=== PATIENT | male | born 1970 | race Caucasian/White ===

== ENCOUNTER 2017-05-17 00:06 | Emergency (ER) | payer OTHER ==
[~2017-05-17] VITALS: Ht 182.9 cm; Wt 68.0 kg
--- NOTE | 2017-05-17 00:06 | NUR ---
Patient BIBA [facility], triaged by RN. Waiting for an available bed.
[2017-05-17 00:10] VITALS: BP 159/86
--- NOTE | 2017-05-17 00:26 | NUR ---
Patient transferred to bed 8 for further care. RN evaluating patient at bedside.
[2017-05-17 00:30] LABS: BASOPHILS # (AUTO) 0.2 K/uL (0.00-0.22); BASOPHILS % (AUTO) 2.6 % (0.0-2.0); EOSINOPHILS # (AUTO) 0.1 K/uL (0-0.4); EOSINOPHILS % (AUTO) 1.4 % (0.0-4.0); HEMATOCRIT 33.2 % (36-52); HEMOGLOBIN 10.9 g/dL (12.0-18.0); LYMPHOCYTES % (AUTO) 12.7 % (20.5-51.1); MEAN CORPUSCULAR HEMOGLOBIN 28 pg (27-31); MEAN CORPUSCULAR HGB CONC 33 g/dL (33-37); MEAN CORPUSCULAR VOLUME 86 fL (80-94); MONOCYTES # (AUTO) 0.3 K/uL (0.8-1.0); MONOCYTES % (AUTO) 3.8 % (1.7-9.3); NEUTROPHILS % (AUTO) 79.5 % (42.2-75.2); PLATELET COUNT (AUTO) 238 K/uL (140-450); RED BLOOD CELL COUNT(AUTO) 3.88 MIL/uL (4.20-6.10); RED CELL DISTRIBUTION WIDTH 12.1 % (11.6-13.7); WHITE BLOOD COUNT (AUTO) 7.6 K/uL (4.8-10.8)
--- NOTE | 2017-05-17 00:30 | NUR ---
46Y/M PT. BIBA TO ED WITH C/O SYNCOPE. PER EMS;PT. VERBAL ARGUMENT WITH HIS THEN HAD SYNCOPE EPISODE AND URINE ON HIMSELF. BS 322 ON SCENE, MED HX: HTN, DM. PT DENIES N/V/D; SKIN IS PINK/WARM/DRY; AAOX4 WITH EVEN AND STEADY GAIT; LUNGS CLEAR BL; HR EVEN AND REGULAR; PT DENIES ANY FEVER, CP, SOB, OR COUGH AT THIS TIME; PATIENT STATES PAIN OF 0/10 AT THIS TIME; VSS; PATIENT POSITIONED FOR COMFORT; HOB ELEVATED; BEDRAILS UP X2; BED DOWN. ER MD MADE AWARE OF PT STATUS.
[2017-05-17 00:41] LABS: CARBON DIOXIDE 26.9 mmol/L (21-32); CREATININE 1.8 mg/dL (0.7-1.3); POTASSIUM 3.9 mmol/L (3.5-5.1)
[2017-05-17 00:47] LABS: ALBUMIN 2.6 g/dL (3.4-5.0); TOTAL BILIRUBIN 0.4 mg/dL (0.0-1.0)
--- NOTE | 2017-05-17 00:52 | NUR ---
Patient taken to CT scan via gurney by [employer].
--- NOTE | 2017-05-17 01:05 | NUR ---
Patient returned from CT scan. RN re-evaluating patient at bedside.
--- NOTE | 2017-05-17 01:15 | NUR ---
Pupils equal and reactive to light bilaterally. No facial droop noted. No smile deficit noted. Speech normal for patient. Patient is alert and oriented to person, place, time and event. Bilateral hand smog technician equal. Bilateral foot push equal.
[2017-05-17 01:19] LABS: BARBITURATE, URINE NEG. ng/ml (NEG <=200); BENZODIAZEPINE, URINE NEG. ng/mL (NEG <=200); CANNABINOID, URINE NEG. ng/mL (NEG <=50); COCAINE, URINE NEG. ng/mL (NEG <=300); OPIATE, URINE NEG. ng/mL (NEG <=2000); PHENCYCLIDINE SCREEN,URINE NEG. ng/mL (NEG <=25)
--- NOTE | 2017-05-17 01:20 | NUR ---
FAMILY AT BEDSIDE. PT AAOX4 AT THIS TIME
--- NOTE | 2017-05-17 01:40 | NUR ---
Patient discharged with v/s stable. Written and verbal after care instructions given and explained. Patient verbalized understanding. Ambulatory with steady gait. All questions addressed prior to discharge. Advised to follow up with PMD.
[2017-05-17 01:56] VITALS: BP 142/77
== END 2017-05-17 01:40 | disposition home or self-care (01) ==
LOC: MED 00:06
DX: R55 Syncope and collapse (principal); R03.0 Elevated blood-pressure reading, without diagnosis of hypertension; R63.0 Anorexia; E11.9 Type 2 diabetes mellitus without complications
CPT/HCPCS: 36415; 70450; 80053; 80305; 85025; 93005; 99285; G0482

== ENCOUNTER 2017-06-09 17:10 | Emergency (ER) | payer OTHER ==
[~2017-06-09] VITALS: Ht 182.9 cm; Wt 81.2 kg
--- NOTE | 2017-06-09 17:10 | NUR ---
Patient BIBA [facility], triaged by RN. Waiting for an available bed.
--- NOTE | 2017-06-09 17:26 | NUR ---
Patient transferred to bed 4 for further care. RN evaluating patient at bedside.
[2017-06-09] MEDS ORDERED: NACL 0.9% 500 ML IV ONE (17:28)
[2017-06-09 17:35] VITALS: BP 130/88
--- NOTE | 2017-06-09 17:35 | NUR ---
PATIENT PRESENTS TO ED C/O TODAY IN [facility],DOWN TO THE FLOOR AND REFUSE TO ANSWER QUESTIONS. BS FIELD 375.ANSWERING TO ALL QUESTIONS UPON ARRIVAL TO ER. STOPPED ALL MEDS. PER PATIENT. HX: DM. DENIES PAIN .DENIES N/V/D; SKIN IS PINK/WARM/DRY; AAOX4 WITH EVEN AND STEADY GAIT; LUNGS CLEAR BL; HR EVEN AND REGULAR; PT DENIES ANY FEVER, CP, SOB, OR COUGH AT THIS TIME; PATIENT STATES PAIN OF 0/10 AT THIS TIME; VSS; PATIENT POSITIONED FOR COMFORT; HOB ELEVATED; BEDRAILS UP X2; BED DOWN. ER MD MADE AWARE OF PT STATUS.
[2017-06-09 17:47] LABS: BASOPHILS # (AUTO) 0.1 K/uL (0.00-0.22); BASOPHILS % (AUTO) 1.4 % (0.0-2.0); EOSINOPHILS % (AUTO) 0.5 % (0.0-4.0); HEMATOCRIT 36.6 % (36-52); HEMOGLOBIN 12.1 g/dL (12.0-18.0); LYMPHOCYTES # (AUTO) 0.8 K/uL (2.0-11.5); LYMPHOCYTES % (AUTO) 13.3 % (20.5-51.1); MEAN CORPUSCULAR HEMOGLOBIN 28 pg (27-31); MEAN CORPUSCULAR HGB CONC 33 g/dL (33-37); MEAN CORPUSCULAR VOLUME 86 fL (80-94); MONOCYTES # (AUTO) 0.5 K/uL (0.8-1.0); MONOCYTES % (AUTO) 7.5 % (1.7-9.3); NEUTROPHILS % (AUTO) 77.3 % (42.2-75.2); PLATELET COUNT (AUTO) 212 K/uL (140-450); RED BLOOD CELL COUNT(AUTO) 4.26 MIL/uL (4.20-6.10); RED CELL DISTRIBUTION WIDTH 11.6 % (11.6-13.7); WHITE BLOOD COUNT (AUTO) 6.4 K/uL (4.8-10.8)
[2017-06-09 17:56] LABS: ANION GAP 9.2 (8-16); CARBON DIOXIDE 28.1 mmol/L (21-32); CHLORIDE 104 mmol/L (98-107); CREATININE 1.3 mg/dL (0.7-1.3); GFR ARICAN-AMERICAN 76 mL/min (>90); GLUCOSE 340 mg/dL (74-106); POTASSIUM 4.3 mmol/L (3.5-5.1); SODIUM SERUM 137 mmol/L (136-145); UREA NITROGEN, BLOOD 22 mg/dL (7-18)
[2017-06-09 18:02] LABS: ASPARTATE AMINOTRANSFERASE 20 U/L (15-37); TOTAL BILIRUBIN 0.4 mg/dL (0.0-1.0)
[2017-06-09 18:04] LABS: ACETONE, SERUM NEGATIVE (NEGATIVE)
[2017-06-09 18:58] VITALS: BP 124/76
--- NOTE | 2017-06-09 18:58 | NUR ---
Patient discharged with v/s stable. Written and verbal after care instructions given and explained. Patient alert, oriented and verbalized understanding of instructions. Ambulatory with steady gait. All questions addressed prior to discharge. ID band removed. Patient advised to follow up with PMD. Rx of GLYBURIDE given. Patient educated on indication of medication including possible reaction and side effects. Opportunity to ask questions provided and answered.
== END 2017-06-09 18:58 | disposition home or self-care (01) ==
LOC: MED 17:10
DX: E11.9 Type 2 diabetes mellitus without complications (principal); Z88.5 Allergy status to narcotic agent
CPT/HCPCS: 36415; 80053; 82009; 85025; 96360; 99284; J7030